=== PATIENT | male | born 1940 | race Caucasian/White ===

== ENCOUNTER 2020-08-12 02:59 | Inpatient (IN) | payer MEDICARE, OTHER, SELFPAY ==
[2020-08-12] VITALS (11 sets, daily range): BP systolic 129–161; BP diastolic 67–83; PULSE 46–72; RESP 18; TEMP 35.4–36.9; O2SAT 94–97; BMI 25.2
--- NOTE | 2020-08-12 03:38 | HP.PCM_ITS ---
Problem List (1) Pneumonia due to COVID-19 virus Status: Acute (2) Hypoxia Status: Acute (3) Alzheimer's dementia Status: Chronic Qualifiers: Alzheimer's disease onset: unspecified onset Dementia behavioral disturbance: without behavioral disturbance Qualified Code(s): G30.9 - Alzheimer's disease, unspecified; F02.80 - Dementia in other diseases classified elsewhere without behavioral disturbance (4) Hypertension Status: Chronic Qualifiers: Hypertension type: essential hypertension Qualified Code(s): I10 - Essential (primary) hypertension (5) Hyperlipidemia Status: Chronic Qualifiers: Hyperlipidemia type: unspecified Qualified Code(s): E78.5 - Hyperlipidemia, unspecified (6) GERD (gastroesophageal reflux disease) Status: Chronic Qualifiers: Esophagitis presence: esophagitis presence not specified Qualified Code(s): K21.9 - Gastro-esophageal reflux disease without esophagitis History of Present Illness Date of Admission: 08/12/20 Chief Complaint: Fever, cough, dyspnea, weakness. The patient is a 79 y/o M w/ PMHx: Alzheimer's Dementia without behavioral disturbance history, HTN, HLD, GERD who presents to the [facility] as direction admission from [facility] on 08/12/20 with history of 3 days of increasingly progressive weakness, malaise, fatigue, dry cough, low-grade temperatures in addition to dyspnea with self evaluation at home with significant hypoxia with activity, down to 77% prompting ED evaluation at outside hospital ED. Patient notes saturations remain appropriate if he is resting and seated otherwise he desaturates. Patient lives at home with his spouse. Patient currently calm, no obvious evidence of dyspnea or distress, notes feeling improved since initial outside facility presentation. Outside hospital ED work-up included : VS: T 38.4-->T 37.3, 66, 24, 146/64, 97% on 2L NC, at rest appropriate, desaturations with movement, weight 88 kg CBC: WBC 4, Hgb 13.6, Plts 129 with lymphopenia CMP: BUN/Cr 22/1.3, AST/ALT 37/35, alk phos 146 otherwise no marked TCK: 211 Myoglobin: 163 EKG: NSR with RBBB unchanged from prior CXR: RLL atelectasis vs infiltrate, BL infiltrate appearance, not severe, early COVID PNA CRP: 2.9 PCR COVID: COVID positive Medications: Decadron 6 mg IV, remdesirivr 200 mg, therapeutic lovenox, tylenol. Past Medical History Past Medical History (Chronic Problems): Chronic Problems Alzheimer's dementia (Chronic) Hypertension (Chronic) Hyperlipidemia (Chronic) GERD (gastroesophageal reflux disease) (Chronic) Allergies No Known Allergies Allergy (Verified 08/12/20 03:31) Home Medications: Ambulatory Orders Medication Instructions Recorded Aspirin [Aspirin EC] 81 mg PO DAILY 08/12/20 Atorvastatin Calcium [Lipitor] 40 mg PO QHS 08/12/20 Cholecalciferol (Vitamin D3) 2,000 unit PO DAILY 08/12/20 [Vitamin D3] Galantamine HBr [Galantamine ER] 8 mg PO BID 08/12/20 Hydrocodone/Acetaminophen [[place] 1 ea PO Q4H PRN 08/12/20 5-325 Tablet] Memantine HCl 10 mg PO BID 08/12/20 Metoprolol Tartrate [Lopressor 25 mg PO BID 08/12/20 (Beta Naomi)] Multivitamin with Minerals 1 ea PO DAILY 08/12/20 [Multiple Vitamin] Pantoprazole Sodium [Protonix] 40 mg PO DAILY 08/12/20 Surgical History: - - Tonsillectomy. Psychiatric History: No pertinent psych hx Lives: Spouse/ Significant Other Smoking Status: Never smoker Tobacco Use: Non-smoker Alcohol: None Drugs: None - *Family History Maternal History Items: Cancer Paternal History Items: Heart Disease Review of Systems Constitutional: Reports: Anorexia, Chills, Fever, Malaise, Weakness, Fatigue. Denies: Weight Change HEENT: Reports: Nasal Congestion. Denies: Head Aches, Sinus Congestion, Sinus Drainage Cardiovascular: Denies: Chest Pain, Palpitations Respiratory: Reports: Cough, Shortness of Breath, Shortness of breath at rest, Shortness of breath upon exertion. Denies: Sputum production, Wheezing Gastrointestinal: Denies: Abdominal Pain, Nausea, Vomiting Genitourinary: Denies: Dysuria Musculoskeletal: Reports: Joint Pain. Denies: Joint Tenderness Skin: Denies: Rash, Wounds Neurological: Denies: Numbness, Tingling, Focal weakness Psychiatric: Denies: Anxiety, Depression, Homicidal Ideations, Suicidal Ideations Hematologic/ Lymphatic: Denies: Easy Bruising, Easy Bleeding VTE Information - Inpt Only VTE Present on Admission: No VTE Mechan Device Prophylaxis: SCD's VTE Pharm Prophylaxis ordered?: Yes Subjective: Seated upright in the PCU bed, fatigued otherwise no acute distress. Objective: Physical Examination: General: awake, alert, oriented to self, some recent events, underlying dementia evident, remains calm and cooperative, seated upright in the PCU bed in no apparent distress. Skin: normal color, turgor, no icterus, cyanosis. HEENT: AT/NC, EOMI, PERRLA, dry MM, no carotid bruits or JVD noted. Lungs: CTA bilaterally, moderate effort, mild decrease BL bases, no rales, ronchi or wheezing. Heart: Regular rate and rhythm; no gallop, rub audible. Abdomen: soft, NTTP, ND, normal BS, no HSM. Extremities: no cyanosis, clubbing, or edema. Neurological: patient awake, alert, oriented as noted with underlying dementia; cognitive function near baseline intact; pupils equally reactive to light and accomodation; cranial nerves II-XII grossly normal, moving all 4 extremities, no focal deficits, strength moderately to severely globally decreased secondary to acute presentation. Psychiatric: affect appears mildly flat, no acute evidence of depressive or anxiety feelings. - Physical Exam Vitals/I&O's: Weight: 191 lb 5.78 oz Body Mass Index (BMI) 25.2 Current Medications Influenza Virus Vaccine Quadrival (Influenza Vaccine (6mos+)/Pf 0.5 Ml Syringe) 0.5 ml IM .ONCE ONE Stop: 08/12/20 10:01 Assessment/Plan All Active Problems Pneumonia due to COVID-19 virus (Acute) Hypoxia (Acute) The patient is a 79 y/o M w/ PMHx: Alzheimer's Dementia without behavioral disturbance history, HTN, HLD, GERD who presents to the [facility] as direction admission from [facility] on 08/12/20 with history of 3 days of increasingly progressive weakness, malaise, fatigue, dry cough, low-grade temperatures in addition to dyspnea associate hypoxia. 1. Acute Hypoxia, Dyspnea, Cough, Fever with Bilateral Pneumonia secondary to Suspected Acute Viral Syndrome, COVID-19: We will admit to the PCU from outside ED, will maintain on Covid precautions, will maintain on oxygen with wean as tolerated to room air, HOB, IS parameters w/ pending respiratory viral panel and urine antigens, will obtain procalcitonin, CRP, CPK, Ferritin, LDH, D-dimer, continue supportive care including q 2 hour turning including prone given no prone bed availability and judicious hydration, closely monitor for worsening status for ARDS and multiorgan failure, obtain infectious disease consultation, continue IV Decadron. Bld cx x 2 obtained in the ED. PT, OT, case management consultation for discharge planning. 2. Alzheimer's dementia without behavioral disturbance history: Complicates presentation, maintain on fall precautions, will continue patient home galantamine and memantine regimen. 3. Hypertension: Continue home regimen including metoprolol with hold parameters, PRN hydralazine. 4. Hyperlipidemia: Continue home statin regimen. 5. GERD: We will continue patient home PPI. 6. DVT prophylaxis: SCDs, Lovenox. 7. CODE status: Patient MIKEL is his and living will is currently in place. Discussed CODE status at length including difference between FULL code, DNR-CCA and DNR-CC status. Following discussions about the differences in these status, requested Full Code status1. Advanced Care Planning Face to Face Time:16 minutes. Inpatient E&M: 15184 Init Hosp L3 Procedures: 43790 Advncd Care Plan 30 Min
[2020-08-12 04:34] LABS: Absolute Lymphocyte Count 0.68 X10^3/uL (0.83-4.51); Absolute Neutrophil Count 2.1 X10^3/uL (2.0-7.7); Basophil# 0.01 X10^3/uL; Basophil% 0.3 % (0-1); Hematocrit 38.8 % (40-54); Hemoglobin 12.5 g/dL (13.0-16.5); Lymphocyte # 0.68 X10^3/ul (4.0); Lymphocyte % 22.1 % (19-41); Mean Corp Hgb Conc 32.2 g/dL (32-36); Mean Corpuscular Volume 102.4 fL (80-94); Mean Platelet Vol. 10.5 fl (6.2-12.0); Monocyte# 0.23 X10^3/uL; Monocyte% 7.5 % (0-10); NRBC Flagged by Analyzer 0 % (0-5); Neutrophil # 2.14 X10^3/uL (2.7-7.7); Neutrophil % 69.8 % (47-70); Platelet Count 112 K/mm3 (150-450); RBC Distribution Width CV 12.8 % (11.6-14.6); RBC Distribution Width SD 48.5 fl (35.1-43.9); Red Blood Count 3.79 M/mm3 (4.6-6.2); White Blood Count 3.1 K/mm3 (4.4-11.0)
[2020-08-12 04:53] LABS: D-Dimer Quantitative (DVT/PE) 1.37 FEU/ug/m (0.27-0.49)
[2020-08-12 04:54] LABS: Ferritin 338 ng/mL (26-388); LDH 181 U/L (87-241); Magnesium 2.3 mg/dL (1.6-2.6)
--- NOTE | 2020-08-12 05:04 | CT_ITS ---
HISTORY: COVID pneumonia, elevated D-dimer, SOB ADDITIONAL HISTORY: None provided. EXAMINATION/TECHNIQUE: CTA Chest WO/W Contrast Injection PULMONARY EMBOLISM PROTOCOL: 2D and 3D images to include MIP and/or volume rendered images CONTRAST: IV 100mL [id number] Number of images including paperwork: 1193 A radiation dose optimization technique was used for this scan. COMPARISON: None FINDINGS: PULMONARY ARTERIES: No pulmonary arterial filling defects. AORTA AND GREAT VESSELS: No dissection. Vascular tortuosity. HEART/PERICARDIUM: Mildly to moderately enlarged heart. MEDIASTINUM: Small sliding hiatal hernia. ADENOPATHY: No pathologic appearing adenopathy. THYROID: Unremarkable visualized portions. LUNG PARENCHYMA: Multifocal groundglass opacities, greater on the right. Bibasilar atelectasis. PLEURAL SPACES: Unremarkable. UPPER ABDOMEN: Unremarkable. OSSEOUS AND SOFT TISSUE STRUCTURES: No acute skeletal findings. Degenerative changes. CT/CTA Chest W/WO Contrast IMPRESSION: 1. No pulmonary embolus detected. 2. Groundglass infiltrates, greater on the right, compatible with provided history of COVID-19 infection. Individualized dose optimization techniques were used for this CT. at 0657 Reported and signed by: Korin Mc MD Electronically Signed: Korin Mc MD at 6:57 EST Tel , Service support ,
[2020-08-12 05:33] LABS: Procalcitonin < 0.04 ng/mL (0.00-0.09)
[2020-08-12 05:47] LABS: ALB/GLOB Ratio 0.8 RATIO (0.9-2.4); AST(SGOT) 41 U/L (15-37); Alanine Aminotransfer ALT/SGPT 38 U/L (16-61); Albumin, Serum 2.8 g/dL (3.2-5.0); Alkaline Phosphatase 146 U/L (45-117); Anion Gap 4 (5-15); BUN 22 mg/dL (7-18); BUN/Creat Ratio 17.9 RATIO (10-20); Calcium,Total 8.4 mg/dL (8.5-10.1); Chloride 108 mmol/L (98-107); Creatinine, Serum 1.23 mg/dL (0.70-1.30); EST Glomerular Filtration Rate 60 mL/min (>60); Est Glom Filt Rate - Afr Amer 73 mL/min (>60); Estimated Creatinine Clearance 55.94 ml/min; Globulin 3.7 g/dL (2.2-4.2); Glucose 141 mg/dL (74-106); Potassium 4.2 mmol/L (3.5-5.1); Protein, Total 6.5 g/dL (6.4-8.2); Sodium Level 138 mmol/L (136-145)
[2020-08-12] MEDS: 0.9% Normal Saline 1,000 ML 100 ML IV (06:54)
[2020-08-12] MEDS: 0.9% Saline Lock 10 ML Syringe IV (06:55)
[2020-08-12] MEDS: Enoxaparin 30 MG/0.3 ML Syringe SC (09:18)
[2020-08-12] MEDS: dexAMETHasone 10 MG/ML Vial 6 MG IV (09:18)
--- NOTE | 2020-08-12 14:10 | CASEMGMT ---
TREVON NEFF assessment: Phone interview with patient for initial transition planning/care coordination assessment. TREVON NEFF introduced self and role at [facility], pt voices understanding and consents to assessment at this time. Pt does have dementia but is A/Ox4 at this time and answers all questions appropriately at this time. Pt states no concerns with getting supplies at home. Care providers, pharmacy, and demographics verified at this time. Presentation: Pt was direct admit from [facility] ED for COVID + and hypoxia. Admitting dx: COVID 19 pna PCP: Frank Specialists: Pt states no current specialists. Preferred [facility]acy: [facility] Insurance: [facility] A/B, MMO Prescription Benefit: Yes Living Will/HPOA: Pt states has LW but is not sure about HPOA and is aware that they are not on file at [facility] at this time. LNOK: Elsi Ramey, Living Arrangements: Pt lives with in 1 story home with 3 steps in and states no concerns at home at this time. Pt states is independent with ADL's. Transportation: Pt states self or family drives and states no transportation concerns at this time. DME/HHC: Pt states no current DME or need for any at this time. Pt states no preference for DME company, if qualifies for home oxygen at discharge. Pt states no hx of HHC or SNF in the past. Pt states no concerns with going home at time of discharge. Pt is retired. Pt states does not smoke cigarettes but does drink ETOH occasionally. Pt voices no further concerns/needs at this time. CM to follow for PT/OT evals, home oxygen need, and any further discharge planning/needs. Advsied pt to ask for CM if any further questions/concerns/needs arise, voices understanding. Pt Goal: Home Plan: Home, pending PT/OT evals, home oxygen testing. [place] TREVON NEFF
--- NOTE | 2020-08-12 17:09 | CON.PCM_ITS ---
Problem List (1) Pneumonia due to COVID-19 virus Status: Acute Reason for Consult: covid Consulted by: Dr. Hampton History of Present Illness: The patient is a 79 year old M who presented reportedly with 3 days of cough, falls, dyspnea, fever. Found to have hypoxia to 77% in [place] ED. No sick contacts, is feeling fine, has not been tested. Covid (+), given dex, remdesivir, transferred here. Feeling fine, no complaints today. No cough, SOB, change in taste/smell, aches, fever, headache, n/v/d. Full ROS performed and neg except as noted above. - Medical History Past Medical History (Chronic Problems): Chronic Problems Alzheimer's dementia (Chronic) Hypertension (Chronic) Hyperlipidemia (Chronic) GERD (gastroesophageal reflux disease) (Chronic) Allergies/Adverse Reactions: Allergies No Known Allergies Allergy (Verified 08/12/20 03:31) Home Medications: Ambulatory Orders Medication Instructions Recorded Aspirin [Aspirin EC] 81 mg PO DAILY 08/12/20 Atorvastatin Calcium [Lipitor] 40 mg PO QHS 08/12/20 Cholecalciferol (Vitamin D3) 2,000 unit PO DAILY 08/12/20 [Vitamin D3] Galantamine HBr [Galantamine ER] 8 mg PO BID 08/12/20 Hydrocodone/Acetaminophen [[place] 1 ea PO Q4H PRN 08/12/20 5-325 Tablet] Memantine HCl 10 mg PO BID 08/12/20 Metoprolol Tartrate [Lopressor 25 mg PO BID 08/12/20 (Beta Naomi)] Multivitamin with Minerals 1 ea PO DAILY 08/12/20 [Multiple Vitamin] Pantoprazole Sodium [Protonix] 40 mg PO DAILY 08/12/20 - Social History Tobacco Use: non-smoker Vital Signs Temp Pulse Resp BP Pulse Ox 97.0 F L 67 18 129/67 H 95 08/12/20 15:53 08/12/20 15:53 08/12/20 15:53 08/12/20 15:53 08/12/20 15:53 Oxygen Delivery Method Room Air Weight: 86.8 kg Body Mass Index (BMI) 25.2 Microbiology Past 72 Hours 08/12/20 10:00 Legionella Antigen - Final Urine, Clean Catch Streptococcus pneumoniae Antigen (M - Final 08/12/20 05:08 Respiratory Panel (PCR) - Final Mucosa - Nose Laboratory Tests Past 24 Hrs 08/12/20 08/12/20 08/12/20 04:20 04:20 04:20 WBC RBC Hgb Hct MCV MCH MCHC RDW Std Deviation RDW Coeff of Janes Plt Count MPV Immature Gran % (Auto) Neut % (Auto) Lymph % (Auto) Boundary % (Auto) Eos % (Auto) Baso % (Auto) Absolute Neuts (auto) Absolute Lymphs (auto) Nucleated RBC % D-Dimer Quant (PE/DVT) 1.37 H* Sodium Potassium Chloride Carbon Dioxide Anion Gap BUN Creatinine Estim Creat Clear Calc Est GFR (MDRD) Af Amer Est GFR (MDRD) Non-Af BUN/Creatinine Ratio Glucose Calcium Magnesium 2.3 Ferritin 338 Total Bilirubin AST ALT Alkaline Phosphatase Lactate Dehydrogenase 181 C-React Prot Ext Range 24.40 H Total Protein Albumin Globulin Albumin/Globulin Ratio Procalcitonin < 0.04 Blood Type Antibody Screen 08/12/20 08/12/20 08/12/20 04:20 04:20 04:20 WBC 3.1 L RBC 3.79 L Hgb 12.5 L Hct 38.8 L MCV 102.4 H MCH 33.0 H MCHC 32.2 RDW Std Deviation 48.5 H RDW Coeff of Janes 12.8 Plt Count 112 L MPV 10.5 Immature Gran % (Auto) 0.300 Neut % (Auto) 69.8 Lymph % (Auto) 22.1 Boundary % (Auto) 7.5 Eos % (Auto) 0.0 Baso % (Auto) 0.3 Absolute Neuts (auto) 2.1 Absolute Lymphs (auto) 0.68 L Nucleated RBC % 0 D-Dimer Quant (PE/DVT) Sodium 138 Potassium 4.2 Chloride 108 H Carbon Dioxide 26.0 Anion Gap 4 L BUN 22 H Creatinine 1.23 Estim Creat Clear Calc 55.94 Est GFR (MDRD) Af Amer 73 Est GFR (MDRD) Non-Af 60 BUN/Creatinine Ratio 17.9 Glucose 141 H Calcium 8.4 L Magnesium Ferritin Total Bilirubin 0.30 AST 41 H ALT 38 Alkaline Phosphatase 146 H Lactate Dehydrogenase C-React Prot Ext Range Total Protein 6.5 Albumin 2.8 L Globulin 3.7 Albumin/Globulin Ratio 0.8 L Procalcitonin Blood Type A POSITIVE Antibody Screen NEGATIVE - Other Studies Radiology: [] reviewed Other Studies: [] Route of nutrition/ use of supplements: [] Nutritional Intake: [] IV Site: [] Gatica Catheter: [] - Physical Exam General: Alert, Cooperative, No apparent distress HEENT: Atraumatic, PERRLA, EOMI Neck: Supple, No Nodes Lungs: Clear to auscultation, Normal air movement Cardiovascular: Regular rate, Regular Rhythm Abdomen: Soft, Non Tender, Non-Distended Extremities: No edema Skin: No rashes IV Site: Peripheral, without redness Musculoskeletal: No Tenderness to Palpation of Joints or Extremities Neurological: Cranial nerves II-XII grossly intact - Assessment/Plan Antibiotics: [] Assessment/Plan: [] Active and Suspected Problems Pneumonia due to COVID-19 virus (Acute) Hypoxia (Acute) On RA here, no complaints. Will cont remdesivir and dex. Plan on d/c home today or tomorrow to complete 10 days total of dex and 2 more weeks of low dose anticoagulation. Will follow as needed, thank you, d/w primary team
--- NOTE | 2020-08-12 17:49 | PCM.HOSP.N ---
Hospitalist Note He was seen and examined today, he does not complain of any shortness of breath, fever, or chills, or chest pain. I talked with his by phone today, she states that the patient does have some dementia but he is high functioning and even drives. I had infectious diseases see the patient today and they recommended remdesivir and dexamethasone. Patient is currently on room air and does not require oxygen even when ambulating. He will be reevaluated tomorrow, if he is still on room air he may be discharged tomorrow after his dose of remdesivir. I have increased the patient's Lovenox to 40 mg every 12 hours.
[2020-08-12] MEDS: Enoxaparin 40 MG/0.4 ML Syringe SC (21:08)
[2020-08-13] VITALS (7 sets, daily range): BP systolic 125–133; BP diastolic 62–85; PULSE 54–89; RESP 17–18; TEMP 36.1–36.7; O2SAT 94–98
[2020-08-13 08:25] LABS: Hematocrit 41.1 % (40-54); Hemoglobin 13.2 g/dL (13.0-16.5); Mean Corp Hgb Conc 32.1 g/dL (32-36); Mean Corpuscular Hgb 32.7 pg (27.0-32.0); Mean Corpuscular Volume 101.7 fL (80-94); Mean Platelet Vol. 10.4 fl (6.2-12.0); Platelet Count 159 K/mm3 (150-450); RBC Distribution Width CV 13.1 % (11.6-14.6); RBC Distribution Width SD 49.5 fl (35.1-43.9); Red Blood Count 4.04 M/mm3 (4.6-6.2); White Blood Count 10.1 K/mm3 (4.4-11.0)
[2020-08-13 08:51] LABS: ALB/GLOB Ratio 0.8 RATIO (0.9-2.4); AST(SGOT) 34 U/L (15-37); Alanine Aminotransfer ALT/SGPT 42 U/L (16-61); Alkaline Phosphatase 145 U/L (45-117); Anion Gap 4 (5-15); BUN 25 mg/dL (7-18); BUN/Creat Ratio 23.1 RATIO (10-20); Calcium,Total 8.9 mg/dL (8.5-10.1); Chloride 111 mmol/L (98-107); Creatinine, Serum 1.08 mg/dL (0.70-1.30); EST Glomerular Filtration Rate 70 mL/min (>60); Est Glom Filt Rate - Afr Amer 85 mL/min (>60); Estimated Creatinine Clearance 63.71 ml/min; Globulin 3.7 g/dL (2.2-4.2); Glucose 125 mg/dL (74-106); Potassium 4.2 mmol/L (3.5-5.1); Protein, Total 6.7 g/dL (6.4-8.2); Sodium Level 142 mmol/L (136-145)
[2020-08-13] MEDS: dexAMETHasone 4 MG Tablet 6 MG PO (10:36)
[2020-08-13] MEDS: 0.9% Saline Lock 10 ML Syringe IV (10:38)
[2020-08-13] MEDS: Enoxaparin 40 MG/0.4 ML Syringe SC (10:47)
--- NOTE | 2020-08-13 12:11 | DCINST_ITS ---
- Discharge Diagnoses Current Active Problems: Current Active and Chronic Problems Pneumonia due to COVID-19 virus (Acute) Hypoxia (Acute) Alzheimer's dementia (Chronic) Hypertension (Chronic) Hyperlipidemia (Chronic) GERD (gastroesophageal reflux disease) (Chronic) You will use the following diet at home:: No restrictions Your food should be the consistency of: Regular Your liquids should be the consistency of: Regular/Thin Discharge Activity: Return to Normal Activity Weight Bearing Status: Full weight bearing Additional Instructions: QUARANTINE FOR 10 DAYS TOTAL AFTER YOU WERE DIAGNOSED Allergies/Adverse Reactions: Allergies No Known Allergies Allergy (Verified 08/12/20 03:31) Medications to take at Discharge Aspirin [Aspirin EC] 81 mg PO DAILY 08/12/20 Atorvastatin Calcium [Lipitor] 40 mg PO QHS 08/12/20 Cholecalciferol (Vitamin D3) [Vitamin D3] 2,000 unit PO DAILY 08/12/20 Galantamine HBr [Galantamine ER] 8 mg PO BID 08/12/20 Hydrocodone/Acetaminophen [[place] 5-325 Tablet] 1 ea PO Q4H PRN 08/12/20 Memantine HCl 10 mg PO BID 08/12/20 Metoprolol Tartrate [Lopressor (beta mike)] 25 mg PO BID 08/12/20 Multivitamin with Minerals [Multiple Vitamin] 1 ea PO DAILY 08/12/20 Pantoprazole Sodium [Protonix] 40 mg PO DAILY 08/12/20 Dexamethasone [Decadron] 6 mg PO DAILY #27 tab 08/13/20 The following prescriptions were given: Dexamethasone [Decadron] 6 mg PO DAILY #27 tab Transmission Status: Pending to [facility] Primary Care Physician: Adonay Marie MD [Primary Care Provider] - Please follow up with your Primary Care Physician in: NEEDED Test Results: Test results from this visit will be discussed in further detail at your follow- up appointment, if applicable.
--- NOTE | 2020-08-13 17:22 | DS.PCM_ITS ---
Discharge Date and Diagnosis - Problem List Patient Problems: Active and Suspected Problems Pneumonia due to COVID-19 virus (Acute) Hypoxia (Acute) Date of Admission: 08/12/20 Date of Discharge: 08/13/20 - Primary Discharge Diagnosis Acute Problems: Active Problems #1 COVID-19 pneumonia #2 Alzheimer's dementia #3 essential hypertension #4 hyperlipidemia - Secondary Discharge Diagnosis Chronic Problems: Chronic Problems Alzheimer's dementia (Chronic) Hypertension (Chronic) Hyperlipidemia (Chronic) GERD (gastroesophageal reflux disease) (Chronic) Hospital Course and Treatment Operations: None Procedures: None Summary of Care Provided: The patient is a 79 year old M was seen in the emergency room [facility] in [facility] with a chief complaint of cough, dyspnea, and fever. Patient was found to have a pulse ox of 77% on room air, he was tested for COVID-19 and tested positive. Patient was given dexamethasone, remdesivir, and transferred to [facility] due to lack of bed availability. Patient was evaluated here at [facility] and admitted to PCU, he was noted to have a normal pulse ox on room air and did not require any supplemental oxygen. Patient was seen in consultation by infectious diseases and kept on dexamethasone and given remdesivir. Patient remained asymptomatic during his hospitalization. On 08/13/2020, patient was seen and examined: On examination he appeared in good health and spirits. Vital signs as documented. Skin warm and dry and without overt rashes. Neck without JVD, neck was supple, trachea midline, thyroid was normal. Lungs clear bilaterally, normal air movement was noted. Heart exam notable for regular rhythm, normal sounds and absence of murmurs, rubs or gallops. Abdomen unremarkable and without evidence of organomegaly, masses, or abdominal aortic enlargement. Bowel sounds are pre sent, abdomen is not distended. Extremities nonedematous, no cyanosis was noted, no clubbing was noted. Neuro: Cranial nerves II through XII are grossly intact, no focal motor deficits were noted, sensation to light touch and pinprick intact, motor exam 5/5 throughout. Psych: Patient is alert and oriented x3, he does not appear anxious or depressed, he does not appear agitated. Patient was felt to be stable for discharge on 08/13/2020. Patient Problems: Active and Suspected Problems Pneumonia due to COVID-19 virus (Acute) Hypoxia (Acute) - Physical Exam Vitals/I&O's: Vital Signs Temp Pulse Resp BP Pulse Ox 97.1 F L 89 18 130/83 H 97 08/13/20 14:30 08/13/20 14:30 08/13/20 14:30 08/13/20 14:30 08/13/20 14:30 Oxygen Delivery Method Room Air Weight: 86.8 kg Body Mass Index (BMI) 25.2 Intake and Output for Last 24 Hours 08/11/20 08/12/20 08/13/20 23:59 23:59 23:59 Intake Total 1939 740 / 740 Balance 1939 740 / 740 Microbiology Past 72 Hours 08/12/20 10:00 Urine, Clean Catch Legionella Antigen - Final 08/12/20 10:00 Urine, Clean Catch Streptococcus pneumoniae Antigen (M - Final 08/12/20 05:08 Mucosa - Nose Respiratory Panel (PCR) - Final Laboratory Results 08/13/20 07:56: WBC 10.1, RBC 4.04 L, Hgb 13.2, Hct 41.1, MCV 101.7 H, MCH 32.7 H, MCHC 32.1, RDW Std Deviation 49.5 H, RDW Coeff of Janes 13.1, Plt Count 159, MPV 10.4 08/13/20 07:56: Sodium 142, Potassium 4.2, Chloride 111 H, Carbon Dioxide 27.0, Anion Gap 4 L, BUN 25 H, Creatinine 1.08, Estim Creat Clear Calc 63.71, Est GFR (MDRD) Af Amer 85, Est GFR (MDRD) Non-Af 70, BUN/Creatinine Ratio 23.1 H, Glucose 125 H, Calcium 8.9, Total Bilirubin 0.40, AST 34, ALT 42, Alkaline Phosphatase 145 H, Total Protein 6.7, Albumin 3.0 L, Globulin 3.7, Al bumin/Globulin Ratio 0.8 L Discharge Activity: Return to Normal Activity Weight Bearing Status: Full weight bearing Home Medications: Medications to take at Discharge Aspirin [Aspirin EC] 81 mg PO DAILY 08/12/20 Atorvastatin Calcium [Lipitor] 40 mg PO QHS 08/12/20 Cholecalciferol (Vitamin D3) [Vitamin D3] 2,000 unit PO DAILY 08/12/20 Galantamine HBr [Galantamine ER] 8 mg PO BID 08/12/20 Hydrocodone/Acetaminophen [[place] 5-325 Tablet] 1 ea PO Q4H PRN 08/12/20 Memantine HCl 10 mg PO BID 08/12/20 Metoprolol Tartrate [Lopressor (beta mike)] 25 mg PO BID 08/12/20 Multivitamin with Minerals [Multiple Vitamin] 1 ea PO DAILY 08/12/20 Pantoprazole Sodium [Protonix] 40 mg PO DAILY 08/12/20 Dexamethasone [Decadron] 6 mg PO DAILY #27 tab 08/13/20 Following Prescriptions Were Given to Patient: Dexamethasone [Decadron] 6 mg PO DAILY #27 tab Transmission Status: Received by [facility] Primary Care Physician: Adonay Marie MD [Primary Care Provider] - Please follow up with your Primary Care Physician in: NEEDED Disposition: Home Minutes spent on discharge:: 31 Patient Condition:: Stable Medical Necessity - Tobacco Use Smoking Status: Never smoker Tobacco Use: Non-smoker Meaningful Use Info Meaningful Use Diagnoses (Choose all that apply): None applicable Inpatient E&M: 61675 Disch Hosp
== END 2020-08-13 16:16 | disposition home or self-care (01) | DRG 177 ==
PROVIDERS: Internal Medicine Infectious Disease; Admitting Provider Family Medicine; PCP Internal Medicine; Visit Provider Internal Medicine
DX: U07.1 COVID-19 (principal); J12.89 Other viral pneumonia; R09.02 Hypoxemia; G30.9 Alzheimer's disease, unspecified; F02.80 Dementia in other diseases classified elsewhere, unspecified severity, without behavioral disturbance, psychotic disturbance, mood disturbance, and anxiety; I10 Essential (primary) hypertension; E78.5 Hyperlipidemia, unspecified; K21.9 Gastro-esophageal reflux disease without esophagitis; Z79.82 Long term (current) use of aspirin; Z79.899 Other long term (current) drug therapy
CPT/HCPCS: 36415; 71275; 80053; 82728; 83615; 83735; 84145; 85025; 85027; 85379; 86140; 86850; 86900; 86901; 87449; 87633; 99251; J7030; J7050; Q9967; A4216; G0463